=== PATIENT | male | born 1930 | race Caucasian/White ===

== ENCOUNTER 2016-05-05 14:22 | Emergency (ER) | payer MEDICARE ==
--- NOTE | 2016-05-05 14:32 | ER Document Report ---
Addendum entered and electronically signed by RAFAEL HERNANDEZ NP 05/05/16 14:35: Nurse Practioner Note - Note Notes: 05/05/16 14:34 2 cm laceration to occipital scalp. Original Note: ED Medical Screen (RME) - General Stated Complaint: FELL/HEAD PAIN Notes: 85 yo male fell backward off steps, hit head on step. no LOC. no neck pain. on coumadin. bleeding controlled
[2016-05-05 15:25] LABS: PROTHROMBIN TIME 21.6 SEC (11.4-15.4)
[2016-05-05] MEDS ORDERED: DIPH/PERTUSS(ACELL)/TETANUS VAC/PF 0.5 ML SYR (>=10YO) IM ONE (19:31)
--- NOTE | 2016-05-05 19:31 | ER Document Report ---
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 Denies loss of consciousness, vomiting, weakness, numbness, or altered mental status since that time. Does note a dull, constant, throbbing pain to his posterior scalp. Nothing improves or worsens the pain. Denies any history of similar episodes in the past. He has not seen his primary care physician regarding today's concerns. He is uncertain when his last tetanus shot was. Does note that he has had a small amount of bleeding from his posterior scalp which has been controlled by direct pressure. TRAVEL OUTSIDE OF THE [place] IN LAST 30 DAYS: No - Related Data Allergies/Adverse Reactions: No Known Allergies Allergy (Unverified 05/05/16 14:34) Past Medical History - General Information source: Patient - Social History Smoking Status: Never Smoker Frequency of alcohol use: None Drug Abuse: None Lives with: Spouse/Significant other Family History: Reviewed & Not Pertinent Patient has suicidal ideation: No Patient has homicidal ideation: No Renal/ Medical History: Denies: Hx Peritoneal Dialysis - Immunizations Hx Diphtheria, Pertussis, Tetanus Vaccination: No Review of Systems - Review of Systems Notes: Constitutional: Negative for fever. Eyes: Negative for visual changes. ENT: Negative for facial injury Cardiovascular: Negative for chest injury. Respiratory: Negative for shortness of breath. Gastrointestinal: Negative for abdominal injury. Genitourinary: Negative for genital injury Musculoskeletal: Negative for back injury. Skin: Positive for laceration/abrasions. Neurological: Positive for head injury. Physical Exam - Vital signs Vitals: Temp Pulse Resp BP Pulse Ox 97.9 F 87 20 141/68 H 97 05/05/16 14:32 05/05/16 14:32 05/05/16 14:32 05/05/16 14:32 05/05/16 14:32 Interpretation: Hypertensive Notes: PHYSICAL EXAMINATION: GENERAL: Well-appearing, no acute distress. HEAD: There is a 7 cm laceration on the central posterior scalp. No skull deformities EYES: Pupils equal round and reactive to light, extraocular movements intact, sclera anicteric, conjunctiva are normal. ENT: nares patent, no oral pharyngeal trauma. No hemotympanum, no Watosn's sign , no raccoon eyes. NECK: No midline cervical spine tenderness. Patient able to move their head to 45 bilaterally without any discomfort. LUNGS: Breath sounds clear to auscultation bilaterally and equal. No wheezes rales or rhonchi. HEART: Regular rate and rhythm without murmurs. CHEST WALL: No ecchymosis over the chest wall. ABDOMEN: Soft, nontender, normoactive bowel sounds. No guarding, no rebound. No abdominal bruising EXTREMITIES: Normal range of motion, no pitting or edema. No long bone deformities. BACK: No midline spinal tenderness, step-offs, or deformities. NEUROLOGICAL: Face symmetric. Tongue protrudes midline. Extraocular motions intact. Pupils are 2 mm and equally reactive. Normal speech, normal gait. 5 out of 5 strength in both the distal and proximal upper and lower extremities bilaterally. Sensation is grossly intact throughout. Finger to nose testing normal. Pronator drift normal. PSYCH: Normal mood, normal affect. SKIN: Warm, Dry, normal turgor, no rashes or lesions noted. Course - Re-evaluation Re-evalutation: 05/06/16 00:45 Presentation of head trauma in an otherwise well-appearing patient. No focal neurologic deficits on exam, no evidence of basilar skull fracture on exam without evidence of hemotympanum, raccoon eyes, or periauricular hematoma. No papilledema. GCS is 15. No loss of consciousness. No episodes of vomiting. However, patient is anticoagulated on Coumadin and therefore CT the head was obtained which was negative for any acute intercranial bleed. Patient did have a 7 cm scalp laceration that was closed using 6 sergio after local anesthesia. No additional evidence of trauma on examination patient is otherwise well in appearance. At this time will discharge with return precautions and follow-up recommendations. Verbal discharge instructions given a the bedside and opportunity for questions given. Medication warnings reviewed. Patient is in agreement with this plan and has verbalized understanding of return precautions and the need for primary care follow-up in the next 24-72 hours. - Vital Signs Vital signs: Temp Pulse Resp BP Pulse Ox 98.0 F 77 16 128/66 H 97 05/05/16 20:14 05/05/16 20:14 05/05/16 20:14 05/05/16 20:14 05/05/16 20:14 - Laboratory Laboratory results interpreted by me: 05/05/16 14:48 PT 21.6 H - Diagnostic Test Radiology reviewed: Image reviewed, Reports reviewed Radiology results interpreted by me: 05/06/16 00:46 CT head: No acute intracranial bleed Procedures - Laceration/Wound Repair Head Wound length (cm): 7 Wound's Depth, Shape: Superficial Laceration pre-procedure: Sterile PPE donned Anesthetic type: 1% Lidocaine Volume Anesthetic (mLs): 4 Wound explored: Clean Irrigated w/ Saline (mLs): 500 Wound Debrided: Moderate Wound Repaired With: [place] Number of Sutures: 6 - Sergio Layer Closure?: No Post-procedure wound care: Sterile dressing applied Post-procedure NV exam normal: Yes Complications: No Discharge - Discharge Clinical Impression: Scalp laceration Qualifiers: Encounter type: initial encounter Qualified Code(s): S01.01XA - Laceration without foreign body of scalp, initial encounter Head trauma Qualifiers: Encounter type: initial encounter Qualified Code(s): S09.90XA - Unspecified injury of head, initial encounter Condition: Good Disposition: HOME, SELF-CARE Additional Instructions: Please return to your primary doctor, the ED, or an urgent care in 7 days for staple removal. Return immediately if you develop spreading redness around the wound, pus from the wound, worsening pain, or a fever of >100.4. Keep the area clean and dry. Wash gently with soap and water twice daily and cover with antibiotic ointment. Your head CT was normal. Signs of a more serious head injury include vomiting, severe headache, excessive sleepiness or confusion, and weakness or numbness in your face, arms or legs. Return immediately to the Emergency Department if you experience any of these more concerning symptoms. You may take ibuprofen or acetaminophen over the counter according to label instructions for mild headache or scalp soreness. Please also follow up with your primary doctor regarding your INR being subtherapeutic at 1.8 today. Referrals: ISABELL LOGAN MD [Primary Care Provider] - Follow up as needed
[2016-05-05 20:17] VITALS: BP 128/66
== END 2016-05-05 20:19 | disposition home or self-care (01) ==
LOC: ER 14:22
PROC: 0HQ0XZZ Repair Scalp Skin, External Approach (ICD-10-PCS; principal; 2016-05-05)
DX: S01.01XA Laceration without foreign body of scalp, initial encounter (principal); W10.9XXA Fall (on) (from) unspecified stairs and steps, initial encounter; R51 Headache; I82.409 Acute embolism and thrombosis of unspecified deep veins of unspecified lower extremity; Z79.01 Long term (current) use of anticoagulants
CPT/HCPCS: 36415; 70450; 85610; 90471; 90715; 99283